=== PATIENT | male | born 1975 | race Caucasian/White ===

== ENCOUNTER 2017-05-30 02:33 | Emergency (ER) | payer MEDICAID ==
[~2017-05-30] VITALS: Ht 180.3 cm; Wt 90.7 kg
[~2017-05-30 02:33] MED LIST: ALPR1TAB2 PO; DEXT20TA2; LORA2TAB; ONDA4TAB10 SL; OXYC5CAP PO; PHEN100C
[2017-05-30 02:38] VITALS: BP 144/87
[2017-05-30] MEDS ORDERED: AMOX1TAB61 PO (03:02)
--- NOTE | 2017-05-30 03:10 | PHYS DOC ---
Past History Past Medical History: Seizure, Other Past Surgical History: Other Smoking: Cigarettes, Greater than 1 pack/day Alcohol Use: None Drug Use: None Adult General Chief Complaint Chief Complaint: WRIST PAIN HPI HPI Patient is a 41 year old M who presents with right arm pain that started several days. He denies injury. His pain is dull constant and worse with movement. He feels that his pain is improved with rest and positioning. He denies fever sweats or chills however he feels that these symptoms are similar to previous infections. He has no other associated symptoms. He has no other exacerbating or alleviating factors. Review of Systems Review of Systems Constitutional: Denies fever or chills [] Eyes: Denies change in visual acuity, redness, or eye pain [] HENT: Denies nasal congestion or sore throat [] Respiratory: Denies cough or shortness of breath [] Cardiovascular: No additional information not addressed in HPI [] GI: Denies abdominal pain, nausea, vomiting, bloody stools or diarrhea [] : Denies dysuria or hematuria [] Musculoskeletal: Negative except history of present illness Integument: Negative except history of present illness Neurologic: Denies headache, focal weakness or sensory changes [] Endocrine: Denies polyuria or polydipsia [] Family History Family History Noncontributory Current Medications Current Medications Medications reviewed Allergies Allergies Allergies Coded Allergies Type Severity Reaction Last Updated Verified ketorolac Allergy Unknown 09/23/14 No Physical Exam Physical Exam Constitutional: Well developed, well nourished, no acute distress, non-toxic appearance. [] HENT: Normocephalic, atraumatic, Eyes: EOMI, conjunctiva normal, no discharge. [] Neck: Normal range of motion, no tenderness, supple, no stridor. [] Cardiovascular:Heart rate regular rhythm, no murmur [] Lungs & Thorax: Bilateral breath sounds clear to auscultation [] Skin: Warm, dry, right medial wrist mild swelling and erythema with mild to moderate tenderness to palpation Extremities: no cyanosis, no clubbing, ROM intact, Neurologic: Alert and oriented X 3, normal motor function, normal sensory function, no focal deficits noted. [] Psychologic: Affect normal, judgement normal, mood normal. [] Current Patient Data Vital Signs Vital signs normal. Please refer to nursing documentation for specifics EKG EKG [] Radiology/Procedures Radiology/Procedures Right wrist x-ray - negative Course & Med Decision Making Course & Med Decision Making Pertinent Labs and Imaging studies reviewed. (See chart for details) Dragon Disclaimer Dragon Disclaimer This chart was dictated in whole or in part using Voice Recognition software in a busy, high-work load, and often noisy Emergency Department environment. It may contain unintended and wholly unrecognized errors or omissions. Departure Departure: Impression: Primary Impression: Cellulitis Disposition: 01 HOME, SELF-CARE Condition: STABLE Referrals: ZI CHOWDHURY MD (PCP) Patient Instructions: Cellulitis Additional Instructions: Zeb was seen in the ED for pain in his right wrist which he feels is similar to previous infections. No emergency condition was found on history and physical exam. He was started on an oral antibiotic and was advised to follow up with his primary care doctor in the next 3-5days for further management. Scripts Amoxicillin/Potassium Clav (AUGMENTIN 875-125 TABLET) 1 Each Tablet 1 TAB PO BID for 14 Days, #28 TAB Prov: MEGAN HANSON MD 05/30/17 Problem Qualifiers Primary Impression: Cellulitis Site of cellulitis: extremity Site of cellulitis of extremity: upper extremity Laterality: right Qualified Codes: L03.113 - Cellulitis of right upper limb MEGAN HANSON MD May 30, 2017 03:10
[2017-05-30] MEDS ORDERED: AMOXICILLIN/K CLAV 875/125MG TABLET. PO ONE (03:30)
--- NOTE | 2017-05-30 07:09 | RAD ---
Right wrist, 3 views, 05/30/2017: History: Soreness, wrist pain No fracture or dislocation is identified. No significant arthritic change is evident. There is mild soft tissue swelling. IMPRESSION: No acute bony abnormality is detected.
== END 2017-05-30 03:12 | disposition home or self-care (01) ==
LOC: ER 02:33
DX: L03.113 Cellulitis of right upper limb (principal); F17.210 Nicotine dependence, cigarettes, uncomplicated; Z88.6 Allergy status to analgesic agent
CPT/HCPCS: 73110; 99284

== ENCOUNTER 2017-06-20 14:12 | Emergency (ER) | payer MEDICAID ==
[~2017-06-20] VITALS: Ht 180.3 cm; Wt 99.8 kg
[~2017-06-20 14:12] MED LIST changes: +AMOX1TAB61 PO
--- NOTE | 2017-06-20 15:18 | PHYS DOC ---
Adult General Chief Complaint Chief Complaint Right hand and wrist pain HPI HPI This is a 41-year-old male compared to right hand and wrist pain. He has surgery for it; sounds like to be a deep space infection of his right hand. He' s had swelling at the area. He's been seen twice at another emergency department. They treated him with "amoxicillin". He presents with continued pain. He believes is an abscess there. There's been no redness or swelling and I had any fevers. He does relate a history of MRSA. Review of Systems Review of Systems Constitutional: Denies fever or chills Eyes: Denies change in visual acuity, redness, or eye pain HENT: Denies nasal congestion or sore throat Respiratory: Denies cough or shortness of breath Cardiovascular: No additional information not addressed in HPI GI: Denies abdominal pain, nausea, vomiting, bloody stools or diarrhea : Denies dysuria or hematuria Musculoskeletal: Denies back pain or joint pain Integument: Denies rash or skin lesions Neurologic: Denies headache, focal weakness or sensory changes Endocrine: Denies polyuria or polydipsia Current Medications Current Medications Current Medications Medications (Trade) Dose Ordered Sig/Aniya Start Time Stop Time Status Last Admin Dose Admin Ceftriaxone Sodium 1 gm/ Sodium Chloride 50 ml @ 100 mls/hr 1X ONCE 06/20/17 15:45 06/20/17 16:14 Ceftriaxone Sodium (Rocephin) 1 gm STK-MED ONCE 06/20/17 16:03 06/20/17 16:04 DC Morphine Sulfate (Morphine 4mg Syringe) 4 mg 1X ONCE 06/20/17 16:15 06/20/17 16:16 Sodium Chloride 50 ml @ As Directed STK-MED ONCE 06/20/17 16:04 06/20/17 16:05 DC Vancomycin HCl 1 gm STK-MED ONCE 06/20/17 16:03 06/20/17 16:04 DC Vancomycin HCl 2 gm/Sodium Chloride 500 ml @ 250 mls/hr 1X ONCE 06/20/17 16:00 06/20/17 17:59 Allergies Allergies Allergies Coded Allergies Type Severity Reaction Last Updated Verified ketorolac Allergy Unknown 09/23/14 No Physical Exam Physical Exam Constitutional: Well developed, well nourished, no acute distress, non-toxic appearance. HENT: Normocephalic, atraumatic, bilateral external ears normal, oropharynx moist, no oral exudates, nose normal. Eyes: PERRLA, EOMI, conjunctiva normal, no discharge. Neck: Normal range of motion, no tenderness, supple, no stridor. Cardiovascular:Heart rate regular rhythm, no murmur Lungs & Thorax: Bilateral breath sounds clear to auscultation Abdomen: Bowel sounds normal, soft, no tenderness, no masses, no pulsatile masses. Skin: I do not appreciate any redness or warmth or abscesses to the right hand or right wrist area. Back: No tenderness, no CVA tenderness. Extremities: He does have tenderness to the ulnar side of his right hand. There is pain with movement of the wrist There is mild swelling to the hand and a healing scratch.. Neurologic: Alert and oriented X 3, normal motor function, normal sensory function, no focal deficits noted. Psychologic: Affect normal, judgement normal, mood normal. Current Patient Data Vital Signs Vital Signs Date Time Temp Pulse Resp B/P (MAP) Pulse Ox O2 Delivery O2 Flow Rate FiO2 06/20/17 14:15 98.1 76 20 95 Room Air Lab Results Laboratory Tests Test 06/20/17 15:03 White Blood Count 11.7 x10^3/uL (4.0-11.0) H Red Blood Count 4.52 x10^6/uL (4.30-5.70) Hemoglobin 14.7 g/dL (13.0-17.5) Hematocrit 41.4 % (39.0-53.0) Mean Corpuscular Volume 92 fL (79-100) Mean Corpuscular Hemoglobin 33 pg (25-35) Mean Corpuscular Hemoglobin Concent 36 g/dL (31-37) Red Cell Distribution Width 12.8 % (11.5-14.5) Platelet Count 218 x10^3/uL (140-400) Neutrophils (%) (Auto) 64 % (31-73) Lymphocytes (%) (Auto) 21 % (24-48) L Monocytes (%) (Auto) 11 % (0-9) H Eosinophils (%) (Auto) 4 % (0-3) H Basophils (%) (Auto) 0 % (0-3) Neutrophils # (Auto) 7.5 x10^3uL (1.8-7.7) Lymphocytes # (Auto) 2.4 x10^3/uL (1.0-4.8) Monocytes # (Auto) 1.3 x10^3/uL (0.0-1.1) H Eosinophils # (Auto) 0.5 x10^3/uL (0.0-0.7) Basophils # (Auto) 0.0 x10^3/uL (0.0-0.2) Sodium Level 136 mmol/L (136-145) Potassium Level 4.2 mmol/L (3.5-5.1) Chloride Level 101 mmol/L (98-107) Carbon Dioxide Level 30 mmol/L (21-32) Anion Gap 5 (6-14) L Blood Urea Nitrogen 13 mg/dL (8-26) Creatinine 1.1 mg/dL (0.7-1.3) Estimated GFR (Cockcroft-Gault) 73.8 BUN/Creatinine Ratio 12 (6-20) Glucose Level 104 mg/dL (70-99) H Calcium Level 8.8 mg/dL (8.5-10.1) Total Bilirubin 1.0 mg/dL (0.2-1.0) Aspartate Amino Transferase (AST) 66 U/L (15-37) H Alanine Aminotransferase (ALT) 105 U/L (16-63) H Alkaline Phosphatase 82 U/L (46-116) C-Reactive Protein 12.4 mg/L (0-3.3) H Total Protein 7.6 g/dL (6.4-8.2) Albumin 3.4 g/dL (3.4-5.0) Albumin/Globulin Ratio 0.8 (1.0-1.7) L EKG EKG [] Radiology/Procedures Radiology/Procedures No bony abnormality of hand or wrist interpreted by radiologist.[] Course & Med Decision Making Course & Med Decision Making Pertinent Labs and Imaging studies reviewed. (See chart for details) He does have pain with movement of the wrist. Objectively I do not see any evidence of an abscess. There could be another infection brewing. We'll check labs and x-ray of the right hand and the right wrist. He gives me the further history that he does have a history of endocarditis ( remotely). D/W Dr. Lagos hospitalist of [facility]. We do not have MRI here so he will need to be transferred to [facility]. D/W / [facility] who accepts patient for admission. Antibiotics ordered. Final Impression Final Impression right hand/wrist cellulitis[] Problems: Dragon Disclaimer Dragon Disclaimer This electronic medical record was generated, in whole or in part, using a voice recognition dictation system. JEN TA MD Jun 20, 2017 15:18
--- NOTE | 2017-06-20 15:18 | RAD ---
Right wrist, 3 views, 06/20/2017: History: Hand pain and swelling No fracture or dislocation is identified. There is moderate diffuse soft tissue swelling. IMPRESSION: No acute bony abnormality is detected. Right hand, 3 views, 06/20/2017: No fracture or dislocation is identified. No destructive bony lesion is seen. IMPRESSION: No significant bony abnormality is detected.
[2017-06-20 15:21] LABS: BASO % 0 % (0-3); EOS # 0.5 x10^3/uL (0.0-0.7); EOS % 4 % (0-3); HEMATOCRIT 41.4 % (39.0-53.0); HEMOGLOBIN 14.7 g/dL (13.0-17.5); LYMPH # 2.4 x10^3/uL (1.0-4.8); LYMPH % 21 % (24-48); MEAN CORPUSCULAR HEMOGLOBIN 33 pg (25-35); MEAN CORPUSCULAR HGB CONC 36 g/dL (31-37); MEAN CORPUSCULAR VOLUME 92 fL (79-100); MONO # 1.3 x10^3/uL (0.0-1.1); MONO % 11 % (0-9); NEUT # 7.5 x10^3uL (1.8-7.7); NEUT % 64 % (31-73); PLATELET COUNT 218 x10^3/uL (140-400); RED BLOOD COUNT 4.52 x10^6/uL (4.30-5.70); RED CELL DISTRIBUTION WIDTH 12.8 % (11.5-14.5); WHITE BLOOD COUNT 11.7 x10^3/uL (4.0-11.0)
[2017-06-20 15:30] LABS: ALBUMIN 3.4 g/dL (3.4-5.0); ALBUMIN/GLOBULIN RATIO 0.8 (1.0-1.7); C REACTIVE PROTEIN 12.4 mg/L (0-3.3); CALCIUM 8.8 mg/dL (8.5-10.1); CREATININE 1.1 mg/dL (0.7-1.3); GFR 73.8; POTASSIUM 4.2 mmol/L (3.5-5.1); TOTAL PROTEIN 7.6 g/dL (6.4-8.2)
[2017-06-20] MEDS ORDERED: VANCOMYCIN 2 GM in IV NORMAL SALINE 500ML 500 ML IV ONE (16:00)
[2017-06-20] MEDS ORDERED: IV NORMAL SALINE 500ML 500 ML ONE ×2 (16:03→16:13)
[2017-06-20] MEDS ORDERED: cefTRIAXone SODIUM 1 GM VIAL IV ONE (16:03)
[2017-06-20] MEDS ORDERED: IV NORMAL SALINE 50ML 50 ML ONE ×2 (16:03→16:04)
[2017-06-20] MEDS ORDERED: VANCOMYCIN 1 GM VIAL. ONE ×2 (16:03→16:14)
[2017-06-20] MEDS ORDERED: MORPHINE SULFATE 4 MG/ML DISP.SYRIN. IV ONE (16:15)
[2017-06-20 16:50] VITALS: BP 151/86
== END 2017-06-20 18:15 | disposition short-term general hospital (02) ==
LOC: ER 14:12
DX: L03.113 Cellulitis of right upper limb (principal); Z86.14 Personal history of Methicillin resistant Staphylococcus aureus infection; Z88.6 Allergy status to analgesic agent
CPT/HCPCS: 36415; 73110; 73130; 80053; 85025; 86140; 96365; 96366; 96375; 99285; J2270; J3370; J7040

== ENCOUNTER 2017-07-01 11:35 | Inpatient (IN) | payer MEDICAID ==
[~2017-07-01] VITALS: Ht 180.3 cm; Wt 96.4 kg
--- NOTE | 2017-07-01 12:10 | PHYS DOC ---
Past History Past Medical History: Anxiety Past Surgical History: Other Smoking: Cigarettes, Greater than 1 pack/day Alcohol Use: Occasionally Drug Use: None Adult General Chief Complaint Chief Complaint: LOWER EXTREMITY SWELLING HPI HPI Patient is a 41 year old M who presents with left foot swelling and redness and pain. Patient states he has a history of staph infections and is concerned that his left foot is infected. Patient denies any fevers however has had chills all night. Patient states he was admitted last month at [facility] for a staph infection of the right hand. Patient denies any chest pain or shortness of breath. Patient denies any nausea/vomiting/diarrhea. Patient is no other complaints. Review of Systems Review of Systems GEN: Denies fevers, chills, sweats HEENT: Denies blurred vision, sore throat CV: Denies chest pain RESP: Denies shortness of air, cough GI: Denies n/v/d NEURO: Denies confusion, dizziness MSK: Left foot pain and swelling All other systems were reviewed and found to be within normal limits, except as documented in this note. Current Medications Current Medications Current Medications Medications (Trade) Dose Ordered Sig/Aniya Start Time Stop Time Status Last Admin Dose Admin Fentanyl Citrate (Fentanyl 2ml Vial) 100 mcg 1X ONCE 07/01/17 12:30 07/01/17 12:31 Sodium Chloride 1,000 ml @ 1,000 mls/hr 1X ONCE 07/01/17 12:15 07/01/17 13:14 Vancomycin HCl (Vanco Per Pharmacy) 1 each PRN DAILY PRN 07/01/17 12:15 UNV Allergies Allergies Allergies Coded Allergies Type Severity Reaction Last Updated Verified ketorolac Allergy Unknown 09/23/14 No Physical Exam Physical Exam GEN.: mild distress. Alert and oriented. HEENT: Head is normocephalic, atraumatic NECK: Supple. LUNGS: CTAB. HEART: RRR, S1, S2 present. Peripheral pulses intact ABDOMEN: Soft, nontender. Positive bowel sounds. EXTREMITIES: Without any cyanosis, warmth and erythema to the left foot with a good dorsal pedis pulse and cap refill less than 2 seconds in the toes of the left, tenderness palpation secondary to the pain and swelling with decreased range of motion to the ankle NEUROLOGIC: Normal speech, normal tone PSYCHIATRIC: Normal affect, normal mood. SKIN: No ulcerations Current Patient Data Vital Signs Laboratory Tests Test 07/01/17 12:14 White Blood Count 7.5 x10^3/uL Red Blood Count 4.31 x10^6/uL Hemoglobin 13.9 g/dL Hematocrit 40.2 % Mean Corpuscular Volume 93 fL Mean Corpuscular Hemoglobin 32 pg Mean Corpuscular Hemoglobin Concent 35 g/dL Red Cell Distribution Width 13.3 % Platelet Count 186 x10^3/uL Neutrophils (%) (Auto) 61 % Lymphocytes (%) (Auto) 23 % Monocytes (%) (Auto) 10 % Eosinophils (%) (Auto) 5 % Basophils (%) (Auto) 1 % Neutrophils # (Auto) 4.6 x10^3uL Lymphocytes # (Auto) 1.7 x10^3/uL Monocytes # (Auto) 0.7 x10^3/uL Eosinophils # (Auto) 0.4 x10^3/uL Basophils # (Auto) 0.1 x10^3/uL Sodium Level 138 mmol/L Potassium Level 3.7 mmol/L Chloride Level 102 mmol/L Carbon Dioxide Level 28 mmol/L Anion Gap 8 Blood Urea Nitrogen 14 mg/dL Creatinine 1.0 mg/dL Estimated GFR (Cockcroft-Gault) 82.3 BUN/Creatinine Ratio 14 Glucose Level 122 mg/dL Lactic Acid Level 2.7 mmol/L Calcium Level 9.0 mg/dL Total Bilirubin 0.7 mg/dL Aspartate Amino Transf (AST/SGOT) 81 U/L Alanine Aminotransferase (ALT/SGPT) 120 U/L Alkaline Phosphatase 81 U/L Total Protein 7.7 g/dL Albumin 3.5 g/dL Albumin/Globulin Ratio 0.8 Current Medications Medications (Trade) Dose Ordered Sig/Aniya Route PRN Reason Start Time Stop Time Status Last Admin Dose Admin Vancomycin HCl (Vanco Per Pharmacy) 1 each PRN DAILY PRN MC SEE COMMENTS 07/01/17 12:15 Fentanyl Citrate (Fentanyl 2ml Vial) 100 mcg 1X ONCE IV 07/01/17 12:30 07/01/17 12:31 DC 07/01/17 12:31 Sodium Chloride 1,000 ml @ 1,000 mls/hr 1X ONCE IV 07/01/17 12:15 07/01/17 13:14 DC 07/01/17 12:35 Vancomycin HCl 2 gm/Sodium Chloride 500 ml @ 250 mls/hr 1X ONCE IV 07/01/17 12:30 07/01/17 14:29 07/01/17 12:33 Sodium Chloride 500 ml @ As Directed STK-MED ONCE .ROUTE 07/01/17 12:20 07/01/17 12:21 DC Vancomycin HCl 1 gm STK-MED ONCE .ROUTE 07/01/17 12:20 07/01/17 12:21 DC Sodium Chloride 1,000 ml @ 1,000 mls/hr 1X ONCE IV 07/01/17 13:00 07/01/17 13:59 Vital Signs Date Time Temp Pulse Resp B/P (MAP) Pulse Ox O2 Delivery O2 Flow Rate FiO2 07/01/17 11:40 97.8 92 22 98 Room Air EKG EKG [] Radiology/Procedures Radiology/Procedures X-ray left foot no obvious fracture or signs of osteomyelitis[] Course & Med Decision Making Course & Med Decision Making Pertinent Labs and Imaging studies reviewed. (See chart for details) ED course: Patient was seen and examined emergency room septic workup was ordered 1300: Patient had a elevated lactic acid and went back to reevaluate the patient and explained to the patient blood work and plan to admit for IV antibiotics 1320: Discussed CC/HP/PMH with Dr. Lagos and recommends admit [] MDM: After reviewing the chart, CC/HPI/PMH, physical exam, [lab results], [ radiological results], I believe the patient has an acute cellulitis to his left foot with a elevated lactic acid however is not severe sepsis and since the patient has no PCP for outpatient follow-up will omit the patient for IV antibiotics and further evaluation and management. [] Dragon Disclaimer Dragon Disclaimer This electronic medical record was generated, in whole or in part, using a voice recognition dictation system. Departure Departure: Impression: Primary Impression: Cellulitis of left foot Additional Impression: Lactic acidosis Disposition: 09 ADMITTED INPATIENT Admitting Physician: Joanie Lagos Condition: STABLE Referrals: PCP,NO (PCP) Problem Qualifiers LA PERDUE DO Jul 01, 2017 12:10
[2017-07-01] MEDS ORDERED: IV NORMAL SALINE 1,000ML 1,000 ML IV ONE ×2 (12:15→13:00)
[2017-07-01] MEDS ORDERED: VANCOMYCIN PER PHARMACY MC PRN (12:15)
[2017-07-01] MEDS ORDERED: VANCOMYCIN 1 GM VIAL. ONE (12:20)
[2017-07-01] MEDS ORDERED: IV NORMAL SALINE 500ML 500 ML ONE (12:20)
[2017-07-01] MEDS ORDERED: VANCOMYCIN 2 GM in IV NORMAL SALINE 500ML 500 ML IV ONE (12:30)
[2017-07-01 12:33] LABS: BASO # 0.1 x10^3/uL (0.0-0.2); BASO % 1 % (0-3); EOS # 0.4 x10^3/uL (0.0-0.7); EOS % 5 % (0-3); HEMATOCRIT 40.2 % (39.0-53.0); HEMOGLOBIN 13.9 g/dL (13.0-17.5); LYMPH # 1.7 x10^3/uL (1.0-4.8); LYMPH % 23 % (24-48); MEAN CORPUSCULAR HEMOGLOBIN 32 pg (25-35); MEAN CORPUSCULAR HGB CONC 35 g/dL (31-37); MEAN CORPUSCULAR VOLUME 93 fL (79-100); MONO # 0.7 x10^3/uL (0.0-1.1); MONO % 10 % (0-9); NEUT # 4.6 x10^3uL (1.8-7.7); NEUT % 61 % (31-73); PLATELET COUNT 186 x10^3/uL (140-400); RED BLOOD COUNT 4.31 x10^6/uL (4.30-5.70); RED CELL DISTRIBUTION WIDTH 13.3 % (11.5-14.5); WHITE BLOOD COUNT 7.5 x10^3/uL (4.0-11.0)
--- NOTE | 2017-07-01 12:48 | RAD ---
Indication: Left foot swelling. Redness. Technique: 3 views of the left foot are submitted for review. No comparison is available. Findings: There is no fracture or dislocation. There is no gross bone destruction. There is diffuse soft tissue swelling. Impression: Negative for fracture.
[2017-07-01 13:03] LABS: ALBUMIN 3.5 g/dL (3.4-5.0); ALBUMIN/GLOBULIN RATIO 0.8 (1.0-1.7); GFR 82.3; POTASSIUM 3.7 mmol/L (3.5-5.1); TOTAL BILIRUBIN 0.7 mg/dL (0.2-1.0); TOTAL PROTEIN 7.7 g/dL (6.4-8.2)
[2017-07-01] MEDS ORDERED: ACETAMINOPHEN 325 MG TABLET PO PRN (13:30)
[2017-07-01] MEDS ORDERED: ONDANSETRON PF 4 MG/2 ML VIAL. IV PRN (13:30)
[2017-07-01 13:49] LABS: CLARITY,URINE CLOUDY; COLOR,URINE STRAW
[2017-07-01 13:50] LABS: AMORPHOUS SEDIMENT,UR PRESENT /HPF; BACTERIA,URINE FEW /HPF (0-FEW); BILIRUBIN,URINE NEG (NEG); GLUCOSE,URINE 100 mg/dL (NEG); NITRITE,URINE NEG (NEG); RBC,URINE 0 /HPF (0-2); SQUAMOUS EPITHELIAL CELL,UR FEW /LPF; UROBILINOGEN,URINE 0.2 mg/dL (0.2 mg/dL); WBC,URINE 0 /HPF (0-4)
[2017-07-01 13:55] LABS: BARBITURATES NEG (NEG); BENZODIAZEPINES NEG (NEG); CANNABINOIDS NEG (NEG); COCAINE NEG (NEG); METHADONE NEG (NEG); OPIATES POS (NEG); PHENCYCLIDINE NEG (NEG)
[2017-07-01 14:01] LABS: AMPHETAMINE/METHAMPHETAMINE NEG (NEG)
[2017-07-01 14:08] VITALS: BP 134/67
[2017-07-01] MEDS ORDERED: QUET200T4 PO (14:53)
[2017-07-01] MEDS ORDERED: CITA20TA9 PO (14:53)
[2017-07-01] MEDS ORDERED: ALPR2TAB2 PO (14:53)
[2017-07-01] MEDS: ALPRAZolam 0.5 MG TABLET PO SCH ×2 (16:20→21:27)
[2017-07-01] MEDS: IV NORMAL SALINE 1,000ML 1,000 ML IV SCH ×2 (16:21→21:29)
[2017-07-01 19:23] VITALS: BP 136/78
[2017-07-01] MEDS: LACTOBACILLUS RHAMNOSUS GG 1 CAPSULE. PO SCH (21:26)
[2017-07-01] MEDS: QUEtiapine 100 MG TABLET. PO SCH (21:26)
[2017-07-01 23:18] VITALS: BP 121/74
[2017-07-01] MEDS: VANCOMYCIN 1.5 GM in IV NORMAL SALINE 500ML 500 ML IV SCH (23:46)
[2017-07-01] MEDS: NICOTINE 21MG PATCH. TD SCH (23:47)
[2017-07-02] MEDS: IV NORMAL SALINE 1,000ML 1,000 ML IV SCH (06:04)
[2017-07-02 06:16] VITALS: BP 152/93
[2017-07-02 08:02] LABS: BASO % 0 % (0-3); CALCIUM 8.4 mg/dL (8.5-10.1); CREATININE 0.9 mg/dL (0.7-1.3); EOS # 0.4 x10^3/uL (0.0-0.7); EOS % 5 % (0-3); HEMATOCRIT 40.1 % (39.0-53.0); HEMOGLOBIN 13.7 g/dL (13.0-17.5); LYMPH # 1.9 x10^3/uL (1.0-4.8); LYMPH % 24 % (24-48); MEAN CORPUSCULAR HEMOGLOBIN 32 pg (25-35); MEAN CORPUSCULAR HGB CONC 34 g/dL (31-37); MEAN CORPUSCULAR VOLUME 93 fL (79-100); MONO # 0.7 x10^3/uL (0.0-1.1); MONO % 9 % (0-9); NEUT % 62 % (31-73); PLATELET COUNT 179 x10^3/uL (140-400); POTASSIUM 3.6 mmol/L (3.5-5.1); RED BLOOD COUNT 4.31 x10^6/uL (4.30-5.70); WHITE BLOOD COUNT 8.2 x10^3/uL (4.0-11.0)
[2017-07-02] MEDS: CITALOPRAM 20 MG TABLET. PO SCH (09:35)
[2017-07-02] MEDS: LACTOBACILLUS RHAMNOSUS GG 1 CAPSULE. PO SCH ×2 (09:35→20:02)
[2017-07-02] MEDS: ALPRAZolam 0.5 MG TABLET PO SCH ×3 (09:35→20:02)
[2017-07-02] MEDS: NICOTINE 21MG PATCH. TD SCH (09:42)
[2017-07-02 10:33] VITALS: BP 146/78
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
[2017-07-02] MEDS: VANCOMYCIN 1.5 GM in IV NORMAL SALINE 500ML 500 ML IV SCH (11:21)
[2017-07-02 15:47] VITALS: BP 133/81
[2017-07-02] MEDS: QUEtiapine 100 MG TABLET. PO SCH (20:02)
[2017-07-02 21:00] VITALS: BP 139/86
[2017-07-02 22:52] VITALS: BP 144/84
[2017-07-02 23:58] LABS: VANC TR 10.3 mcg/mL (10.0-20.0)
[2017-07-03] MEDS: VANCOMYCIN 1.5 GM in IV NORMAL SALINE 500ML 500 ML IV SCH ×3 (00:20→23:27)
[2017-07-03 05:34] VITALS: BP 136/84
[2017-07-03 06:23] LABS: BASO # 0.1 x10^3/uL (0.0-0.2); BASO % 1 % (0-3); EOS # 0.5 x10^3/uL (0.0-0.7); EOS % 6 % (0-3); HEMOGLOBIN 13.9 g/dL (13.0-17.5); LYMPH # 2.5 x10^3/uL (1.0-4.8); LYMPH % 28 % (24-48); MEAN CORPUSCULAR HEMOGLOBIN 32 pg (25-35); MEAN CORPUSCULAR HGB CONC 35 g/dL (31-37); MEAN CORPUSCULAR VOLUME 92 fL (79-100); MONO # 0.8 x10^3/uL (0.0-1.1); MONO % 9 % (0-9); NEUT # 5.3 x10^3uL (1.8-7.7); NEUT % 57 % (31-73); PLATELET COUNT 188 x10^3/uL (140-400); RED BLOOD COUNT 4.36 x10^6/uL (4.30-5.70); RED CELL DISTRIBUTION WIDTH 12.9 % (11.5-14.5); WHITE BLOOD COUNT 9.2 x10^3/uL (4.0-11.0)
[2017-07-03 06:43] LABS: ALBUMIN 2.7 g/dL (3.4-5.0); ALBUMIN/GLOBULIN RATIO 0.6 (1.0-1.7); CALCIUM 8.7 mg/dL (8.5-10.1); CREATININE 0.8 mg/dL (0.7-1.3); GFR 106.5; MAGNESIUM 1.8 mg/dL (1.8-2.4); POTASSIUM 3.3 mmol/L (3.5-5.1); TOTAL BILIRUBIN 0.6 mg/dL (0.2-1.0); TOTAL PROTEIN 6.9 g/dL (6.4-8.2)
[2017-07-03] MEDS: NICOTINE 21MG PATCH. TD SCH (07:55)
[2017-07-03] MEDS: ALPRAZolam 0.5 MG TABLET PO SCH ×3 (07:55→20:59)
[2017-07-03] MEDS: CITALOPRAM 20 MG TABLET. PO SCH (07:55)
[2017-07-03] MEDS: LACTOBACILLUS RHAMNOSUS GG 1 CAPSULE. PO SCH ×2 (07:55→20:58)
[2017-07-03] MEDS ORDERED: ACETAMINOPHEN 325 MG TABLET PO PRN (10:45)
[2017-07-03] MEDS ORDERED: BENZOCAINE 20% ORAL GEL 11.9GM TUBE. TP PRN (10:45)
[2017-07-03 10:52] VITALS: BP 138/90
[2017-07-03 14:49] VITALS: BP 125/86
[2017-07-03 18:32] VITALS: BP 143/88
[2017-07-03] MEDS: QUEtiapine 100 MG TABLET. PO SCH (20:58)
[2017-07-03 23:26] VITALS: BP 137/71
[2017-07-04 05:25] VITALS: BP 125/75
[2017-07-04 07:11] LABS: BASO # 0.1 x10^3/uL (0.0-0.2); BASO % 1 % (0-3); EOS # 0.7 x10^3/uL (0.0-0.7); EOS % 7 % (0-3); HEMATOCRIT 40.6 % (39.0-53.0); HEMOGLOBIN 14.3 g/dL (13.0-17.5); LYMPH # 2.8 x10^3/uL (1.0-4.8); LYMPH % 27 % (24-48); MEAN CORPUSCULAR HEMOGLOBIN 32 pg (25-35); MEAN CORPUSCULAR HGB CONC 35 g/dL (31-37); MEAN CORPUSCULAR VOLUME 90 fL (79-100); MONO # 0.8 x10^3/uL (0.0-1.1); MONO % 8 % (0-9); NEUT % 58 % (31-73); PLATELET COUNT 200 x10^3/uL (140-400); RED CELL DISTRIBUTION WIDTH 12.6 % (11.5-14.5); WHITE BLOOD COUNT 10.4 x10^3/uL (4.0-11.0)
[2017-07-04 07:30] LABS: ALBUMIN 2.8 g/dL (3.4-5.0); ALBUMIN/GLOBULIN RATIO 0.7 (1.0-1.7); CALCIUM 8.5 mg/dL (8.5-10.1); CREATININE 0.9 mg/dL (0.7-1.3); POTASSIUM 3.7 mmol/L (3.5-5.1); TOTAL BILIRUBIN 0.6 mg/dL (0.2-1.0); TOTAL PROTEIN 7.1 g/dL (6.4-8.2)
--- NOTE | 2017-07-04 07:35 | PN ---
DATE: PROBLEMS: 1. Left lower extremity cellulitis. 2. New finding of 1 positive blood culture with gram-positive cocci in clusters. 3. History of cellulitis of the other extremities. 4. History of bacterial endocarditis. 5. History of methicillin-resistant Staphylococcus aureus. 6. Anxiety. 7. Traumatic brain injury. 8. History of IV drug abuse in the past. 9. Tobacco use disorder. Foot is a lot better. He is getting his pain medication and has not had any incidents with the nursing staff. He has been up ambulating in the flores and so is doing better. OBJECTIVE: VITAL SIGNS: Blood pressure 125/86, pulse 86, temperature 98.5, pulse ox 96% on room air. LUNGS: Clear. CARDIOVASCULAR: Regular rhythm and rate. ABDOMEN: Soft, nontender. EXTREMITIES: Left extremity markedly decreased erythema, still has one little area of tenderness by the medial malleolus, otherwise much improved. LABORATORY DATA: One blood culture positive for gram-positive cocci in chains. His potassium is 3.3. Liver function tests have gone down a little. PLAN: Continue IV antibiotics, try to plan for discharge tomorrow, and hopefully will have an identification of the gram-positive cocci. PATRICE CHACON DO DR: ENEDINA/margy JOB#: [id number] / [id number]
[2017-07-04] MEDS ORDERED: SULF1TAB24 PO (07:52)
[2017-07-04] MEDS: NICOTINE 21MG PATCH. TD SCH (08:33)
[2017-07-04] MEDS: LACTOBACILLUS RHAMNOSUS GG 1 CAPSULE. PO SCH (09:01)
[2017-07-04] MEDS: CITALOPRAM 20 MG TABLET. PO SCH (09:01)
[2017-07-04] MEDS: ALPRAZolam 0.5 MG TABLET PO SCH (09:01)
--- NOTE | 2017-07-04 17:31 | DS ---
DATE OF DISCHARGE: 07/04/2017 DISCHARGE DIAGNOSES: 1. Left lower extremity cellulitis. 2. Positive blood culture with gram-positive cocci in clusters, ____ pending. 3. History of cellulitis of other extremities. 4. 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 5. History of methicillin-resistant Staphylococcus aureus. 6. Anxiety. 7. Traumatic brain injury. 8. History of IV drug abuse in the past. 9. Tobacco use disorder. HOSPITAL COURSE: The patient is doing much better this morning and would like to be discharged. He has meeting with his probationary officer and he asked me to write him a note stating that he received IV fentanyl as he will have the drug test. He was cooperative throughout his hospital stay and did not have any incidents with nurses or threatened to leave AMA. OBJECTIVE: VITAL SIGNS: Temperature is 97, pulse 74, respirations 20, blood pressure 125/75, pulse ox 99% on room air. LEFT LOWER EXTREMITIES: The foot has just minimal erythema now, the swelling has gone down considerably and is not very painful to palpation anymore. LABORATORY DATA: Looks good. Blood culture again preliminary is Coag negative staph. PLAN: He has been discharged on p.o. antibiotics and we will call if it is not compatible with Coag negative staph, as he has already left. Encouraged to quit smoking. He needs to establish care with primary care doctor. PATRICE CHACON DO DR: ENEDINA/margy JOB#: [id number] / [id number]
== END 2017-07-04 09:50 | disposition home or self-care (01) | DRG 603 ==
LOC: ER 11:35 → 1 SOUTH 13:17
PROVIDERS: ADMIT Family Medicine; ATTEND Family Medicine
DX: L03.116 Cellulitis of left lower limb (principal); E87.2 Acidosis; F17.210 Nicotine dependence, cigarettes, uncomplicated; B96.89 Other specified bacterial agents as the cause of diseases classified elsewhere; F41.9 Anxiety disorder, unspecified; Z86.14 Personal history of Methicillin resistant Staphylococcus aureus infection; Z86.19 Personal history of other infectious and parasitic diseases; Z87.820 Personal history of traumatic brain injury; Z88.8 Allergy status to other drugs, medicaments and biological substances; Z71.6 Tobacco abuse counseling
CPT/HCPCS: 36415; 73630; 80048; 80053; 80202; 80307; 81001; 83605; 83735; 85025; 87040; 87205; 87641; 96365; 96375; 99406; J3010; J3370; J7040; 99285-25; G0479; J7030

== ENCOUNTER 2017-08-01 17:52 | Emergency (ER) | payer MEDICAID ==
[~2017-08-01] VITALS: Ht 180.3 cm; Wt 95.0 kg
[~2017-08-01 17:52] MED LIST changes: +ALPR2TAB2 PO; +CITA20TA9 PO; +QUET200T4 PO; +SULF1TAB24 PO
--- NOTE | 2017-08-01 18:17 | ED.ADGEN ---
Past History Past Medical History: Anxiety Past Surgical History: Other Smoking: Cigarettes, Greater than 1 pack/day Alcohol Use: Occasionally Drug Use: None Adult General Chief Complaint Chief Complaint " I got a bunch of MRSA spots.. and need to be back on Bactrim..." HPI HPI Patient is a 41 year old male who presents with above hx and complaints of skin eruptions. Pt. has drained small abscess. Currently requesting Bactrim DS. Pt. up-to-date with tetanus. Patient denies immunosuppression. Patient denies specific ill contacts. Patient denies any travel. Patient has had recurrent episodes of MRSA. Review of Systems Review of Systems Constitutional: Denies fever or chills [] Eyes: Denies change in visual acuity, redness, or eye pain [] HENT: Denies nasal congestion or sore throat [] Respiratory: Denies cough or shortness of breath [] Cardiovascular: No additional information not addressed in HPI [] GI: Denies abdominal pain, nausea, vomiting, bloody stools or diarrhea [] : Denies dysuria or hematuria [] Musculoskeletal: Denies back pain or joint pain [] Integument: Complains of MRSA rash or skin lesions [] Neurologic: Denies headache, focal weakness or sensory changes [] Endocrine: Denies polyuria or polydipsia [] All other systems were reviewed and found to be within normal limits, except as documented in this note. Current Medications Current Medications Current Medications Medications (Trade) Dose Ordered Sig/Aniya Start Time Stop Time Status Last Admin Dose Admin Trimethoprim/ Sulfamethoxazole (Bactrim Ds) 1 tab 1X ONCE 08/01/17 18:30 08/01/17 18:31 DC 08/01/17 18:40 1 TAB Allergies Allergies Allergies Coded Allergies Type Severity Reaction Last Updated Verified ketorolac Allergy Intermediate 07/02/17 No I S O L A T I O N *CONTACT* Allergy Unknown 07/02/17 Yes Physical Exam Physical Exam Constitutional: no acute distress, non-toxic appearance. [] HENT: Normocephalic, atraumatic, bilateral external ears normal, oropharynx moist, no oral exudates, nose normal. [] Eyes: PERRLA, EOMI, conjunctiva normal, no discharge. [] Neck: Normal range of motion, no tenderness, supple, no stridor. [] Cardiovascular:Heart rate regular rhythm, no murmur [] Lungs & Thorax: Bilateral breath sounds equal at apexes with scattered wheezes auscultation [] Abdomen: Bowel sounds normal, soft, no tenderness, no masses, no pulsatile masses. [] Skin: Warm, dry, no erythema, numerous small abscesses Back: No tenderness, no CVA tenderness. [] Extremities: No tenderness, no cyanosis, no clubbing, ROM intact, no edema. [] Neurologic: Alert and oriented X 3, normal motor function, normal sensory function, no focal deficits noted. [] Psychologic: Affect normal, judgement normal, mood normal. [] Current Patient Data Vital Signs Vital Signs Date Time Temp Pulse Resp B/P (MAP) Pulse Ox O2 Delivery O2 Flow Rate FiO2 08/01/17 18:38 77 18 120/74 (89) 95 Room Air 08/01/17 17:52 97.9 EKG EKG [] Radiology/Procedures Radiology/Procedures [] Course & Med Decision Making Course & Med Decision Making Pertinent Labs and Imaging studies reviewed. (See chart for details). Patient to wash with Dial soap 4 times a day after washing apply and massage and Bactroban to the lesion site. Patient take Bactrim DS twice a day for 10 days. Patient follow-up primary care. He also use a small amount Bactroban to nose 4 times a day [] Final Impression Final Impression 1. MRSA[] 2. Cellulitis Problems: Dragon Disclaimer Dragon Disclaimer This electronic medical record was generated, in whole or in part, using a voice recognition dictation system. MARY ASHRAF MD Aug 01, 2017 18:17
[2017-08-01] MEDS ORDERED: MUPI15CR TP (18:25)
[2017-08-01] MEDS ORDERED: SULF1TAB24 PO (18:25)
[2017-08-01] MEDS ORDERED: SMZ/TMP 800/160MG TABLET. PO ONE (18:30)
[2017-08-01 18:38] VITALS: BP 120/74
== END 2017-08-01 18:38 | disposition home or self-care (01) ==
LOC: ER 17:52
DX: A49.02 Methicillin resistant Staphylococcus aureus infection, unspecified site (principal); L03.818 Cellulitis of other sites; F41.9 Anxiety disorder, unspecified; F17.210 Nicotine dependence, cigarettes, uncomplicated; Z88.4 Allergy status to anesthetic agent; Z91.041 Radiographic dye allergy status
CPT/HCPCS: 99283

== ENCOUNTER 2017-08-19 16:00 | Emergency (ER) | payer MEDICAID ==
[~2017-08-19] VITALS: Ht 180.3 cm; Wt 93.0 kg
[~2017-08-19 16:00] MED LIST changes: +MUPI15CR TP
[2017-08-19 16:05] VITALS: BP 116/74
--- NOTE | 2017-08-19 17:02 | PHYS DOC ---
Past History Past Medical History: MRSA, Other Past Surgical History: Other Smoking: Cigarettes, Greater than 1 pack/day Alcohol Use: None Drug Use: None Adult General Chief Complaint Chief Complaint: SKIN PROBLEM HPI HPI 41-year-old male presenting to the emergency department today with skin picking. He denies any fevers or chills. Review of systems was negative for chest pain shortness of breath fevers or chills. He denies any purulent drainage. All other review of systems is negative unless otherwise noted in history of present illness. ED course: 41-year-old male presenting the emergency room with skin picking and chronic healing wounds without any evidence of abscess formation or cellulitis. I recommended the patient stop picking at his skin and follow-up with his doctor next few days. He can use lotion as needed for dry skin. Review of Systems Review of Systems SEE ABOVE. Allergies Allergies Allergies Coded Allergies Type Severity Reaction Last Updated Verified ketorolac Allergy Intermediate 08/19/17 No I S O L A T I O N *CONTACT* Allergy Unknown 07/02/17 Yes tramadol Allergy Unknown 08/19/17 Yes Physical Exam Physical Exam SEE ABOVE Constitutional: Well developed, well nourished, no acute distress, non-toxic appearance. [] HENT: Normocephalic, atraumatic, bilateral external ears normal, oropharynx moist, no oral exudates, nose normal. [] Eyes: PERRLA, EOMI, conjunctiva normal, no discharge. [] Neck: Normal range of motion, no tenderness, supple, no stridor. [] Cardiovascular:Heart rate regular rhythm, no murmur [] Lungs & Thorax: Bilateral breath sounds clear to auscultation [] Abdomen: Bowel sounds normal, soft, no tenderness, no masses, no pulsatile masses. [] Skin: Patient has mild wounds/scabs at different stages of healing over his body without any evidence of cellulitis or abscess formation. Back: No tenderness, no CVA tenderness. [] Extremities: No tenderness, no cyanosis, no clubbing, ROM intact, no edema. [] Neurologic: Alert and oriented X 3, normal motor function, normal sensory function, no focal deficits noted. [] Psychologic: Affect normal, judgement normal, mood normal. [] Current Patient Data Vital Signs Vital Signs Date Time Temp Pulse Resp B/P (MAP) Pulse Ox O2 Delivery O2 Flow Rate FiO2 08/19/17 16:05 98.6 88 16 96 Room Air EKG EKG [] Radiology/Procedures Radiology/Procedures [] Course & Med Decision Making Course & Med Decision Making Pertinent Labs and Imaging studies reviewed. (See chart for details) [] Dragon Disclaimer Dragon Disclaimer This electronic medical record was generated, in whole or in part, using a voice recognition dictation system. Departure Departure: Impression: Primary Impression: Excoriation (skin-picking) disorder Disposition: HOME, SELF-CARE Condition: STABLE Referrals: PCP,NO (PCP) Additional Instructions: I recommend not picking at your skin. Use topical lotion as needed and follow- up with your doctor in the next 2-3 days. Thank you for allowing us to participate in your care today. Followup with your primary care physician in 2-3 days. Call your Primary Doctor tomorrow and inform them of your visit today. If you do not have a primary care provider you can ask for a list of our primary care providers. Return to the emergency department you have any new or concerning findings. This should be evaluated by the primary care physician and any necessary consulting services for continued management within a few days after discharge. Return to emergency room if you have any new or concerning symptoms including but not limited to fever, chills, nausea, vomiting, intractable pain, any new rashes, chest pain, shortness of air, uncontrolled bleeding, difficulty breathing, and/or vision loss. REBECCA DEL RIO MD Aug 19, 2017 17:02
== END 2017-08-19 17:11 | disposition home or self-care (01) ==
LOC: ER 16:00
DX: F42.4 Excoriation (skin-picking) disorder (principal); F17.210 Nicotine dependence, cigarettes, uncomplicated; Z86.14 Personal history of Methicillin resistant Staphylococcus aureus infection; Z88.8 Allergy status to other drugs, medicaments and biological substances; Z88.6 Allergy status to analgesic agent; Z91.041 Radiographic dye allergy status
CPT/HCPCS: 99281

== ENCOUNTER 2017-08-28 16:52 | Emergency (ER) | payer MEDICAID ==
[2017-08-28 17:00] VITALS: BP 137/78
[2017-08-28] MEDS ORDERED: HYDR-971 PO (18:09)
[2017-08-28] MEDS ORDERED: SULF1TAB24 PO (18:09)
[2017-08-28] MEDS ORDERED: CEPH-264 PO (18:09)
--- NOTE | 2017-08-28 18:09 | PHYS DOC ---
Past History Past Medical History: MRSA, Other Past Surgical History: Other Smoking: Cigarettes, Greater than 1 pack/day Alcohol Use: None Drug Use: None Adult General Chief Complaint Chief Complaint: HAND PROBLEM HPI HPI Patient is a 41 year old male who presents with complaint of hand and wrist swelling. The patient states his symptoms have started 2 days ago and have continued to worsen. Patient states that he has had history of MRSA infection, stating that he had an infection in his right foot that required admission to the hospital for further care. Patient denied any need for surgery at that time. The patient states that his symptoms resolved after treatment with IV antibiotics. The patient did grow MRSA from a blood culture taken during that admission. Patient states his symptoms feel similar at this time. The patient denies any use of IV drugs. Patient has not had any fevers Review of Systems Review of Systems Constitutional: Denies fever or chills [] Eyes: Denies change in visual acuity, redness, or eye pain [] HENT: Denies nasal congestion or sore throat [] Respiratory: Denies cough or shortness of breath [] Cardiovascular: Denies chest pain or edema[] GI: Denies abdominal pain, nausea, vomiting, bloody stools or diarrhea [] : Denies dysuria or hematuria [] Musculoskeletal: Right hand pain and swelling[] Integument: Denies rash or skin lesions [] Neurologic: Denies headache, focal weakness or sensory changes [] All other systems were reviewed and found to be within normal limits, except as documented in this note. Allergies Allergies Allergies Coded Allergies Type Severity Reaction Last Updated Verified ketorolac Allergy Intermediate 08/19/17 No I S O L A T I O N *CONTACT* Allergy Unknown 07/02/17 Yes tramadol Allergy Unknown 08/19/17 Yes Physical Exam Physical Exam Constitutional: Alert, afebrile, appears in [id number] discomfort. [] HENT: Normocephalic, atraumatic, bilateral external ears normal, oropharynx moist, no oral exudates, nose normal. [] Skin: Warm, dry, no erythema, no rash. [] Back: No tenderness, no CVA tenderness. [] Extremities: Mild to moderate soft tissue tenderness along dorsum of right hand extending to distal third of the dorsal right forearm, tender to palpation, no cyanosis, no clubbing, ROM intact, no lymphangitic streaking. [] Neurologic: Alert and oriented X 3, normal motor function, normal sensory function, no focal deficits noted. [] Current Patient Data Vital Signs Vital Signs Date Time Temp Pulse Resp B/P (MAP) Pulse Ox O2 Delivery O2 Flow Rate FiO2 08/28/17 17:00 98.6 74 18 98 Room Air Lab Results Current Medications Medications (Trade) Dose Ordered Sig/Aniya Route PRN Reason Start Time Stop Time Status Last Admin Dose Admin Trimethoprim/ Sulfamethoxazole (Bactrim Ds) 1 tab 1X ONCE PO 08/28/17 18:15 08/28/17 18:17 DC 08/28/17 18:10 EKG EKG Not performed[] Radiology/Procedures Radiology/Procedures Not performed[] Course & Med Decision Making Course & Med Decision Making Pertinent Labs and Imaging studies reviewed. (See chart for details) The patient's exam appears mild. Given patient's history of MRSA infection with similar symptoms, I will treat the patient with oral Bactrim to cover for potential MRSA infection. Patient will also be given ibuprofen and hydrocodone to continue oral treatment. Advise follow-up in 2 days with primary doctor for reevaluation and to return emergency department for any worsening symptoms. Patient voiced understanding and in agreement with treatment plan. Dragon Disclaimer Dragon Disclaimer This electronic medical record was generated, in whole or in part, using a voice recognition dictation system. Departure Departure: Impression: Primary Impression: Cellulitis of left hand Disposition: 01 HOME, SELF-CARE Condition: IMPROVED Referrals: PCPANDI (PCP) Patient Instructions: Cellulitis Additional Instructions: Follow-up with your primary doctor in 2 days for reevaluation. Return to emergency department for any worsening symptoms. Scripts Hydrocodone Bit/Acetaminophen (NORCO 5-325 TABLET) 1 Each Tablet 1-2 TAB PO Q4-6HRS Y for PAIN, #20 TAB Prov: MANDY FORBES MD 08/28/17 Cephalexin (KEFLEX) 500 Mg Capsule 1 CAP PO TID, #30 CAP Prov: MANDY FORBES MD 08/28/17 Sulfamethoxazole/Trimethoprim (BACTRIM DS TABLET) 1 Each Tablet 1 TAB PO BID, #20 TAB Prov: MANDY FORBES MD 08/28/17 MANDY FORBES MD Aug 28, 2017 18:09
[2017-08-28] MEDS ORDERED: SMZ/TMP 800/160MG TABLET. PO ONE (18:15)
== END 2017-08-28 18:13 | disposition home or self-care (01) ==
LOC: ER 16:52
DX: L03.113 Cellulitis of right upper limb (principal); Z86.14 Personal history of Methicillin resistant Staphylococcus aureus infection; F17.210 Nicotine dependence, cigarettes, uncomplicated; Z88.8 Allergy status to other drugs, medicaments and biological substances; Z88.6 Allergy status to analgesic agent; Z91.041 Radiographic dye allergy status
CPT/HCPCS: 99283

== ENCOUNTER 2017-10-14 07:44 | Emergency (ER) | payer MEDICAID ==
[~2017-10-14] VITALS: Ht 180.3 cm; Wt 91.0 kg
[~2017-10-14 07:44] MED LIST changes: +CEPH-264 PO; +HYDR-971 PO
[2017-10-14 08:44] LABS: INFLUENZA A PATIENT NEGATIVE (NEGATIVE); INFLUENZA B PATIENT NEGATIVE (NEGATIVE)
[2017-10-14] MEDS ORDERED: BENZONATATE 100 MG CAPSULE. PO ONE (09:00)
[2017-10-14] MEDS ORDERED: IPRATRPIUM/ALBUTEROL 0.5/2.5MG 3 ML NEBU. NEB ONE (09:00)
[2017-10-14] MEDS ORDERED: LIDOCAINE 2% VISCOUS 15 ML SOLUTION. SWSW ONE (09:00)
[2017-10-14] MEDS ORDERED: SULF1TAB24 PO (09:14)
[2017-10-14] MEDS ORDERED: BENZ100C PO (09:14)
[2017-10-14] MEDS ORDERED: Percogesic PO (09:14)
--- NOTE | 2017-10-14 09:15 | PHYS DOC ---
Past History Past Medical History: Anxiety, MRSA, Other Past Surgical History: Other Smoking: Cigarettes Alcohol Use: None Drug Use: None Adult General Chief Complaint Chief Complaint: SORE THROAT HPI HPI 42-year-old male patient complaining of sore throat for the last 3 days with swelling of left side of his neck and left ear pain. Patient states he had temperature of 102 two days ago and 101 yesterday and took leftover hydrocodone and ibuprofen. Patient complaining of cough and congestion with episodes of diarrhea. Patient rated his pain 10 over 10 and denies vomiting, sick contact, abdominal pain, symptom. Patient states he had history of MRSA frequently and had lesion in his face and his back with pus drainage. Patient also requesting blood drawn for blood protocol for the psych clinic. Review of Systems Review of Systems Constitutional: Reports fever and chills[] Eyes: Denies change in visual acuity, redness, or eye pain [] HENT: Reports nasal congestion or sore throat] Respiratory: Reports cough and shortness of Cardiovascular: No additional information not addressed in HPI [] GI: Denies abdominal pain, nausea, vomiting, bloody stools or diarrhea [] : Denies dysuria or hematuria [] Musculoskeletal: Denies back pain or joint pain [] Integument: Reports skin lesions] Neurologic: Denies headache, focal weakness or sensory changes [] Endocrine: Denies polyuria or polydipsia [] All other systems were reviewed and found to be within normal limits, except as documented in this note. Allergies Allergies Allergies Coded Allergies Type Severity Reaction Last Updated Verified ketorolac Allergy Intermediate 08/19/17 No I S O L A T I O N *CONTACT* Allergy Unknown 07/02/17 Yes tramadol Allergy Unknown 08/19/17 Yes Physical Exam Physical Exam Constitutional: Well nourished, mild distress, non-toxic appearance, anxious. [] HENT: Normocephalic, atraumatic, bilateral external ears normal, oropharynx moist, pharyngeal erythema without erythema, no oral exudates, nose normal. [] Eyes: PERRLA, EOMI, conjunctiva normal, no discharge. [] Neck: Normal range of motion, no tenderness, supple, no stridor left cervical lymphadenopathy. [] Cardiovascular:Heart rate regular rhythm, no murmur [] Lungs & Thorax: Bilateral breath sounds clear to auscultation [] Abdomen: Bowel sounds normal, soft, no tenderness, no masses, no pulsatile masses. [] Skin: Warm, dry, no erythema, multiple facial and extremity folliculitis without sign of abscess] Back: No tenderness, no CVA tenderness. [] Extremities: No tenderness, no cyanosis, no clubbing, ROM intact, no edema. [] Neurologic: Alert and oriented X 3, normal motor function, normal sensory function, no focal deficits noted. [] Psychologic: Anxious, judgement normal, mood normal. [] Current Patient Data Vital Signs Vital Signs Date Time Temp Pulse Resp B/P (MAP) Pulse Ox O2 Delivery O2 Flow Rate FiO2 10/14/17 07:44 98.7 93 20 95 Room Air EKG EKG [] Radiology/Procedures Radiology/Procedures [] Course & Med Decision Making Course & Med Decision Making Pertinent Labs reviewed. (See chart for details) Evaluation of patient in ER showed 42-year-old male patient with frequent emergency room visits and history of psychiatric problem complaining of multiple problem. Patient had negative strep and flu test and treated with DuoNeb, Tessalon, viscous lidocaine for sore throat. Patient also had folliculitis on his face and back.Patient requesting for blood draw for psychiatric clinic that informed to follow up with his psychiatric doctor. discharge: I've spoken with the patient and/or caregivers. I've explained the patient's condition, diagnosis and treatment plan based on information available to me at this time. I've answered the patient's and/or caregivers questions and addressed any concerns. The patient and/or caregivers have a good understanding the patient's diagnosis, condition and treatment plan as can be expected at this point. Vital signs have been stabilized. The patient's condition is stable for discharge from the emergency department. The patient will pursue further outpatient evaluation with her primary care provider or other designated consulting physician as outlined in the discharge instructions. Patient and/or caregivers are agreeable to this plan of care and follow-up instructions have been explained in detail. The patient and/or caregivers have received these instructions in written format and expressed understanding of these discharge instructions. The patient and her caregivers are aware that if any significant change in condition or worsening of symptoms should prompt him to immediately return to this of the closest emergency department. If an emergent department is not readily available I would encourage him to call 911. Teresa Disclaimer Teresa Disclaimer This electronic medical record was generated, in whole or in part, using a voice recognition dictation system. Departure Departure: Impression: Primary Impression: URI (upper respiratory infection) Additional Impressions: Pharyngitis Folliculitis Tobacco abuse Tobacco abuse counseling Anxiety Drug-seeking behavior Disposition: 01 HOME, SELF-CARE Condition: IMPROVED Referrals: PCP,NO (PCP) Patient Instructions: Folliculitis, Upper Respiratory Infection, Adult, Viral and Bacterial Pharyngitis Additional Instructions: Drink plenty of liquids Follow-up with your primary care physician in 3-5 days Return to ER if not getting better Quit smoking Scripts Benzonatate (TESSALON PERLE) 100 Mg Capsule 1 CAP PO TID, #21 CAP Prov: EMILY WYMAN MD 10/14/17 [Percogesic] No Conflict Check 1 TAB PO TID PRN Y for PAIN, #14 Prov: EMILY WYMAN MD 10/14/17 Sulfamethoxazole/Trimethoprim (BACTRIM DS TABLET) 1 Each Tablet 1 TAB PO BID, #20 TAB Prov: EMILY WYMAN MD 10/14/17 Problem Qualifiers EMILY WYMAN MD Oct 14, 2017 09:15
[2017-10-14 09:30] VITALS: BP 132/71
== END 2017-10-14 09:22 | disposition home or self-care (01) ==
LOC: ER 07:44
DX: J02.9 Acute pharyngitis, unspecified (principal); L73.9 Follicular disorder, unspecified; Z76.5 Malingerer [conscious simulation]; F41.9 Anxiety disorder, unspecified; Z86.14 Personal history of Methicillin resistant Staphylococcus aureus infection; F17.210 Nicotine dependence, cigarettes, uncomplicated; Z71.6 Tobacco abuse counseling; Z88.8 Allergy status to other drugs, medicaments and biological substances; Z88.6 Allergy status to analgesic agent; Z91.041 Radiographic dye allergy status
CPT/HCPCS: 87070; 87804; 87880; 94640; 99284; J7620

== ENCOUNTER 2017-11-06 19:53 | Emergency (ER) | payer MEDICAID ==
[~2017-11-06 19:53] MED LIST changes: +BENZ100C PO; +Percogesic PO
[2017-11-06 20:05] VITALS: BP 133/77
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
== END 2017-11-06 21:14 | disposition home or self-care (01) ==
LOC: ER 19:53
DX: S09.90XA Unspecified injury of head, initial encounter (principal); R07.81 Pleurodynia; F41.9 Anxiety disorder, unspecified; F17.210 Nicotine dependence, cigarettes, uncomplicated; Z87.820 Personal history of traumatic brain injury; Z88.8 Allergy status to other drugs, medicaments and biological substances; Z88.6 Allergy status to analgesic agent; Z91.041 Radiographic dye allergy status; Y08.89XA Assault by other specified means, initial encounter; Y93.89 Activity, other specified; Y99.8 Other external cause status; Y92.89 Other specified places as the place of occurrence of the external cause
CPT/HCPCS: 70450; 71046; 99284-25

== ENCOUNTER 2018-01-22 22:01 | Emergency (ER) | payer MEDICAID, OTHER ==
[~2018-01-22] VITALS: Ht 180.3 cm; Wt 91.0 kg
[2018-01-22 22:01] VITALS: BP 122/79
--- NOTE | 2018-01-22 22:13 | ED.ADGEN ---
Past History Past Medical History: Anxiety, Depression, MRSA, Other Past Surgical History: Other Smoking: Cigarettes Alcohol Use: None Drug Use: None Adult General Chief Complaint Chief Complaint " .. I get MRSa all the time .. I got a bad spot on my chest... "" I stuff some toilet paper in it.. HPI HPI Patient is a 42 year old male who presents with above hx and complaints of cellulitis.. Multiple insect bites and localized areas of cellulitis. History of immunosuppression complaints. No recent travel. Denies drug use. Denies any travel. Denies any specific ill contacts. Patient skin lacks adequate hygiene. Does have several areas of insect bites of developed into cellulitis. No adenopathy appreciated. No abscesses that need draining at this time. Patient is up-to-date with tetanus. Patient does smoke. Review of Systems Review of Systems Constitutional: Denies fever or chills [] Eyes: Denies change in visual acuity, redness, or eye pain [] HENT: Denies nasal congestion or sore throat [] Respiratory: Denies cough or shortness of breath [] Cardiovascular: No additional information not addressed in HPI [] GI: Denies abdominal pain, nausea, vomiting, bloody stools or diarrhea [] : Denies dysuria or hematuria [] Musculoskeletal: Denies back pain or joint pain [] Integument: Multiple erythematous insect bites that have been excoriated and have developed a cellulitis. Neurologic: Denies headache, focal weakness or sensory changes [] Endocrine: Denies polyuria or polydipsia [] All other systems were reviewed and found to be within normal limits, except as documented in this note. Family History Family History Noncontributory Current Medications Current Medications Current Medications Medications (Trade) Dose Ordered Sig/Aniya Start Time Stop Time Status Last Admin Dose Admin Ceftriaxone Sodium (Rocephin Im) 1 gm 1X ONCE 01/22/18 22:30 01/22/18 22:35 DC 01/22/18 22:30 1 GM Trimethoprim/ Sulfamethoxazole (Bactrim Ds) 1 tab 1X ONCE 01/22/18 22:30 01/22/18 22:35 DC 01/22/18 22:30 1 TAB Allergies Allergies Allergies Coded Allergies Type Severity Reaction Last Updated Verified ketorolac Allergy Intermediate 08/19/17 No I S O L A T I O N *CONTACT* Allergy Unknown 07/02/17 Yes acetaminophen Allergy Unknown 10/14/17 Yes diphenhydramine Allergy Unknown 10/14/17 Yes phenyltoloxamine Allergy Unknown 10/14/17 Yes tramadol Allergy Unknown 08/19/17 Yes Physical Exam Physical Exam Constitutional: no acute distress, non-toxic appearance. [] HENT: Normocephalic, atraumatic, bilateral external ears normal, oropharynx moist, no oral exudates, nose normal. [] Eyes: PERRLA, EOMI, conjunctiva normal, no discharge. [] Neck: Normal range of motion, no tenderness, supple, no stridor. [] Cardiovascular:Heart rate regular rhythm, no murmur [] Lungs & Thorax: Bilateral breath sounds equal apex scattered wheezes. Auscultation [] does have one larger area cellulitis 2 x 2 centimeters on right -sided chest. That he's placed toilet paper . Abdomen: Bowel sounds normal, soft, no tenderness, no masses, no pulsatile masses. [] Skin: Warm, dry, right areas of erythema, mobile insect bites with localized cellulitis Back: No tenderness, no CVA tenderness. [] Extremities: No tenderness, no cyanosis, no clubbing, ROM intact, no edema. [] Neurologic: Alert and oriented X 3, normal motor function, normal sensory function, no focal deficits noted. [] Psychologic: Affect(anxious, judgement normal, mood normal. [] EKG EKG [] Radiology/Procedures Radiology/Procedures [] Course & Med Decision Making Course & Med Decision Making Pertinent Labs and Imaging studies reviewed. (See chart for details). Wash all lesions 4 times a day. At work apply Polysporin and massage into the wound. Take Bactrim DS twice a day. Follow-up primary care. Return if any concerns. [] Final Impression Final Impression 1. Cellulitis[] 2. Excoriation of insect bites Dragon Disclaimer Dragon Disclaimer This electronic medical record was generated, in whole or in part, using a voice recognition dictation system. MARY ASHRAF MD Jan 22, 2018 22:13
[2018-01-22] MEDS ORDERED: cefTRIAXone IM 1 GM VIAL IM ONE (22:30)
[2018-01-22] MEDS ORDERED: SMZ/TMP 800/160MG TABLET. PO ONE (22:30)
[2018-01-22] MEDS ORDERED: SULF1TAB23 PO (22:34)
== END 2018-01-22 22:56 | disposition home or self-care (01) ==
LOC: ER 22:01
DX: L03.313 Cellulitis of chest wall (principal); S20.361A Insect bite (nonvenomous) of right front wall of thorax, initial encounter; F17.210 Nicotine dependence, cigarettes, uncomplicated; Z88.8 Allergy status to other drugs, medicaments and biological substances; Z88.6 Allergy status to analgesic agent; Z91.041 Radiographic dye allergy status; W57.XXXA Bitten or stung by nonvenomous insect and other nonvenomous arthropods, initial encounter; Y93.89 Activity, other specified; Y99.8 Other external cause status; Y92.89 Other specified places as the place of occurrence of the external cause
CPT/HCPCS: 96372; 99283; J0696